=== PATIENT | male | born 1955 | race Caucasian/White ===

== ENCOUNTER 2019-02-14 16:59 | Emergency (ER) | payer MEDICAID, OTHER ==
[2019-02-14] MEDS ORDERED: Famotidine 20 MG/2 ML SDV IVPUSH ONE (17:07)
--- NOTE | 2019-02-14 17:07 | EDM.PDOC ---
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 fibrillation with rapid ventricular response SNOMED Code(s): 551958304241224 Code(s): I48.91 - UNSPECIFIED ATRIAL FIBRILLATION Status: Acute Priority : High Onset Date: 02/14/19 Annotation/Comment:: Recurrent atrial fibrillation with rapid ventricular response with recent repeat cardiac ablation as above. Aggressive therapy with 2 doses of 10 mg of IV Lopressor initially with additional 2.5 mg of IV Lopressor given secondary to refractory tachycardia. Cardizem CD orally also given as above. Telephone consultation at 18:15 hours with Victoriano Billy M.D., emergency room physician at [facility], who does accept the patient for further evaluation, treatment , and admission with no further treatment recommendations given. Ambulance transfer with developmental specialist accompaniment. Paramedics were given instructions on repeat low-dose IV Lopressor administration, if required during transfer, with no further IV diltiazem for now secondary to previous doses, current Lipitor therapy, etc.. He may need an IV diltiazem infusion depending on his clinical course, however significant improvement during our emergency room treatment as above. Troponin I is elevated likely secondary to recent cardiac ablation as above with no chest pain or anginal type symptoms prior to evaluation. Consider cardiology consultation, rule out of ID, etc. depending on his clinical course. The patient was initially somewhat hypotensive on arrival, however significantly improved blood pressures with treatment as above with stable vital signs and clinical exam at time of transfer. Note mild hypoxemia on arrival with O2 sats supplementation initiated at 2 L/m by nasal cannula. (2) CHF (congestive heart failure) SNOMED Code(s): 14324235 Code(s): I50.9 - HEART FAILURE, UNSPECIFIED Status: Acute Priority: High Onset Date: 02/14/19 Annotation/Comment:: Mild CHF by chest x-ray and BNP elevation likely secondary to his atrial fibrillation. Lasix 40 mg given IV. No previous history of CHF. Note recent echocardiogram as above. Qualifiers: Heart failure type: other Qualified Code(s): I50.9 - Heart failure, unspecified (3) Coronary artery disease SNOMED Code(s): 68713549 Code(s): I25.10 - ATHSCL HEART DISEASE OF [place] CORONARY ARTERY W/O ANG PCTRS Status: Chronic Priority: Medium Annotation/Comment:: As above. Note previous history of PTCA/stent. Qualifiers: Coronary Disease-Associated Artery/Lesion type: [place] artery [place] vs. transplanted heart: [place] heart Associated angina: without angina Qualified Code(s): I25.10 - Atherosclerotic heart disease of [place] coronary artery without angina pectoris (4) UTI (urinary tract infection) SNOMED Code(s): 87768848 Code(s): N39.0 - URINARY TRACT INFECTION, SITE NOT SPECIFIED Status: Acute Priority: High Onset Date: 02/14/19 Annotation/Comment:: Note significant leukocytosis and current fever. High-dose IV Rocephin given as above. Tylenol also given. Urine specimen set up for culture and sensitivity with additional blood cultures 2 collected. Cannot rule out postoperative pneumonia. Note that Flower catheter was placed during recent cardiac ablation by patient history. Qualifiers: Urinary tract infection type: acute cystitis Hematuria presence: without hematuria Qualified Code(s): N30.00 - Acute cystitis without hematuria (5) Hyperlipidemia SNOMED Code(s): 19501117 Code(s): E78.5 - HYPERLIPIDEMIA, UNSPECIFIED Status: Chronic Priority: Medium Annotation/Comment:: Currently under therapy. Qualifiers: Hyperlipidemia type: unspecified Qualified Code(s): E78.5 - Hyperlipidemia , unspecified (6) Hypoalbuminemia SNOMED Code(s): 336278544 Code(s): E88.09 - OTH DISORDERS OF PLASMA-PROTEIN METABOLISM, NEC Status: Acute Priority: Medium Onset Date: 02/14/19 Annotation/Comment:: Observe for now (7) Hypocalcemia SNOMED Code(s): 3771542 Code(s): E83.51 - HYPOCALCEMIA Status: Acute Priority: Medium Onset Date: 02/14/19 Annotation/Comment:: Observe for now. (8) Hypokalemia SNOMED Code(s): 41694042 Code(s): E87.6 - HYPOKALEMIA Status: Acute Priority: High Onset Date: 02/14/19 Annotation/Comment:: Potassium chloride 40 mEq given by mouth in the emergency room. Note additional IV Lasix as above. Continue to observe closely by accepting providers. (9) PAC (premature atrial contraction) SNOMED Code(s): 180280750 Code(s): I49.1 - ATRIAL PREMATURE DEPOLARIZATION Status: Acute Priority: High Onset Date: 02/14/19 Annotation/Comment:: As above with additional previous history of PSVT and atrial fibrillation. (10) Peptic reflux disease SNOMED Code(s): 782410871 Code(s): K21.9 - GASTRO-ESOPHAGEAL REFLUX DISEASE WITHOUT ESOPHAGITIS Status: Chronic Priority: Medium Annotation/Comment:: Under therapy and stable by history. - Problem List Review Problem List Initiated/Reviewed/Updated: Yes - My Orders Last 24 Hours: My Active Orders 02/14/19 17:00 CULTURE BLOOD [BC] Stat 02/14/19 17:07 Cardiac Monitoring [RC] . DIRECTED EKG Documentation Completion [RC] ASDIRECTED Oxygen Therapy, ED [RC] CONTINUOUS Peripheral IV Care [RC] . DIRECTED Pulse Oximetry [RC] CONTINUOUS Up With Assistance [RC] PFP Vital Signs [RC] PFP Chest 1V Frontal [CR] Stat Sodium Chloride 0.9% [Saline Flush] 10 ml FLUSH ASDIRECTED PRN Obtain Past Medical Record [OM.PC] Urgent Peripheral IV Insertion Adult [OM.PC] Stat Resuscitation Status Stat 02/14/19 17:09 Blood Culture x2 Reflex Set [OM.PC] Urgent 02/14/19 17:10 CULTURE BLOOD [BC] Stat 02/14/19 17:48 cefTRIAXone [Rocephin] 2 gm Sodium Chloride 0.9% [Normal Saline] 100 ml IV ONETIME 02/14/19 17:50 CULTURE URINE [RM] Routine 02/14/19 Breakfast Nothing per Oral Now Diet [DIET] - Assessment/Plan Last 24 Hours: My Active Orders 02/14/19 17:00 CULTURE BLOOD [BC] Stat 02/14/19 17:07 Cardiac Monitoring [RC] . DIRECTED EKG Documentation Completion [RC] ASDIRECTED Oxygen Therapy, ED [RC] CONTINUOUS Peripheral IV Care [RC] . DIRECTED Pulse Oximetry [RC] CONTINUOUS Up With Assistance [RC] PFP Vital Signs [RC] PFP Chest 1V Frontal [CR] Stat Sodium Chloride 0.9% [Saline Flush] 10 ml FLUSH ASDIRECTED PRN Obtain Past Medical Record [OM.PC] Urgent Peripheral IV Insertion Adult [OM.PC] Stat Resuscitation Status Stat 02/14/19 17:09 Blood Culture x2 Reflex Set [OM.PC] Urgent 02/14/19 17:10 CULTURE BLOOD [BC] Stat 02/14/19 17:48 cefTRIAXone [Rocephin] 2 gm Sodium Chloride 0.9% [Normal Saline] 100 ml IV ONETIME 02/14/19 17:50 CULTURE URINE [RM] Routine 02/14/19 Breakfast Nothing per Oral Now Diet [DIET] Assessment:: As above Plan: As above. Extensive precautions were given to the patient and his son, who are in agreement with the treatment plan. Ambulance transfer with developmental specialist accompaniment
[2019-02-14] MEDS ORDERED: Diltiazem 25 MG/5 ML SDV IVPUSH ONE (17:09)
[2019-02-14] MEDS: Sodium Chloride 0.9% 10 ML Syringe FLUSH PRN ×5 (17:31→18:37)
[2019-02-14 17:42] LABS: CHLORIDE,CL 103 mmol/L (98-107); SODIUM,NA 137 mmol/L (136-145)
[2019-02-14] MEDS ORDERED: Acetaminophen 325 MG Tab PO ONE (17:47)
[2019-02-14] MEDS ORDERED: cefTRIAXone 2 GM in Sodium Chloride 0.9% 100 ML IV ONE (17:48)
[2019-02-14] MEDS ORDERED: Metoprolol Tartrate 5 MG/5 ML SDV IVPUSH ONE (18:17)
[2019-02-14] MEDS ORDERED: Diltiazem 120 MG Cap.CD PO ONE (18:29)
[2019-02-14] MEDS ORDERED: Furosemide 40 MG/4 ML VIAL IVPUSH ONE (18:29)
[2019-02-14] MEDS ORDERED: Potassium Chloride 20 MEQ Tab.ER PO ONE (18:30)
[2019-02-14 19:01] VITALS: BP 117/80
== END 2019-02-14 18:55 ==
LOC: LL.ED 16:59
DX: I11.0 Hypertensive heart disease with heart failure (principal); I50.9 Heart failure, unspecified; N30.00 Acute cystitis without hematuria; I25.10 Atherosclerotic heart disease of native coronary artery without angina pectoris; E78.5 Hyperlipidemia, unspecified; E88.09 Other disorders of plasma-protein metabolism, not elsewhere classified; E87.6 Hypokalemia; I49.1 Atrial premature depolarization; K21.9 Gastro-esophageal reflux disease without esophagitis; E78.00 Pure hypercholesterolemia, unspecified; I25.2 Old myocardial infarction; E11.9 Type 2 diabetes mellitus without complications; E66.9 Obesity, unspecified; F41.9 Anxiety disorder, unspecified; F90.9 Attention-deficit hyperactivity disorder, unspecified type; Z87.891 Personal history of nicotine dependence; Z68.30 Body mass index [BMI] 30.0-30.9, adult; Z98.890 Other specified postprocedural states; Z79.82 Long term (current) use of aspirin; Z79.899 Other long term (current) drug therapy
CPT/HCPCS: 36415; 71045; 80053; 81001; 82550; 82553; 83605; 83735; 83880; 84443; 84484; 84550; 85025; 85379; 85610; 85730; 87040; 87077; 87086; 87088; 87186; 93005; 96365; 96375; 99285-25; A9270-GY; J0696; J1940; J3490; J7050